=== PATIENT | male | born 1945 | race Caucasian/White ===

== ENCOUNTER → 2017-12-26 | Outpatient (CLI) | payer MEDICARE ==
--- NOTE | 2017-12-26 16:17 | XR ---
EXAMINATION TYPE: XR KUB DATE OF EXAM: 12/26/2017 COMPARISON: 08/02/2013 INDICATION: Renal stones TECHNIQUE: Single view abdomen frontal projection FINDINGS: There is a normal bowel gas pattern. Psoas margins are normal. No organomegaly is present. There is a large 1.7 x 3.1 cm calcification over the inferior pole right kidney with multiple additio nal smaller calcifications adjacent. These may be increasing in number and conspicuity. Multiple surgical clips likely from prostatectomy are within the pelvis. IMPRESSION: 1. Large right renal calcification with multiple increasing additional calcifications inferior pole r ight kidney region.
== END | disposition home or self-care (01) ==
LOC: RADXRMAIN 14:17
PROVIDERS: ATTEND Urology
DX: N20.0 Calculus of kidney (principal)
CPT/HCPCS: 74018

== ENCOUNTER → 2018-09-25 | Outpatient (CLI) | payer MEDICARE ==
--- NOTE | 2018-09-25 16:53 | XR ---
EXAMINATION TYPE: XR KUB DATE OF EXAM: 09/25/2018 COMPARISON: 12/26/2017r INDICATION: Renal stones TECHNIQUE: Single view abdomen supine view FINDINGS: There is a normal bowel gas pattern. Psoas margins are normal. No organomegaly is present. Large calcifications are at the inferior pole right kidney. The largest calcification measures 3.7 x 1.9 cm which is larger than the comparison. IMPRESSION: 1. Multiple calcifications mid to inferior pole right kidney, largest calcification has increased in size from the comparison.
== END | disposition home or self-care (01) ==
LOC: RADXRMAIN 10:58
PROVIDERS: ATTEND Urology
DX: N28.89 Other specified disorders of kidney and ureter (principal)
CPT/HCPCS: 74018

== ENCOUNTER → 2019-10-15 | Outpatient (CLI) | payer MEDICARE ==
--- NOTE | 2019-10-15 11:02 | XR ---
EXAMINATION TYPE: XR KUB DATE OF EXAM: 10/15/2019 HISTORY: Pain Comparison: September 25, 2018 Single KUB is submitted for interpretation. Findings: Right renal calculi: Large right renal calculus is redemonstrated and currently measures 2.3 x 1.5 cm versus 3.7 x 1.9 cm previously. Smaller cluster of calcifications again noted lower pole right kidne y with total measurement of 1.1 x 1.1 cm. Right ureteral calculi: None Visualized. Left renal calculi: None Visualized. Left ureteral calculi: None Visualized. Pelvic calcifications: None Visualized. Bowel gas pattern is unremarkable. No free air. No mass effects. IMPRESSION: 1. Large right renal calculus is redemonstrated and currently measures 2.3 x 1.5 cm versus 3.7 x 1.9 cm previously. Smaller cluster of calcifications again noted lower pole right kidney with total measu rement of 1.1 x 1.1 cm.
--- NOTE | 2019-10-15 12:23 | US ---
EXAMINATION TYPE: US kidneys/renal and bladder DATE OF EXAM: 10/15/2019 COMPARISON: NONE CLINICAL HISTORY: N20.0 Calculus of kidney. History of kidney stones EXAM MEASUREMENTS: Right Kidney: 11.6 x 6.1 x 6.2 cm Left Kidney: 13.5 x 7.0 x 5.6 cm Right Kidney: multiple stones lower pole, largest = 1.6cm. cystic area mid = 1.1 x 1.2 x 1.5cm Left Kidney: no evidence of hydronephrosis Bladder: not fully distended Bilateral Jets seen: no There is no evidence for hydronephrosis at this point in time. No nephrolithiasis is seen. No gail s are identified. The urinary bladder is anechoic. Bilateral ureteral jets are seen. IMPRESSION: Multiple right-sided nephrolithiasis without hydronephrosis.
== END | disposition home or self-care (01) ==
LOC: RADUSMAIN 09:39
PROVIDERS: ATTEND Urology
DX: N20.0 Calculus of kidney (principal)
CPT/HCPCS: 74018; 76770

== ENCOUNTER → 2021-12-01 | Outpatient (CLI) | payer MEDICARE ==
--- NOTE | 2021-12-01 14:45 | CT ---
EXAMINATION TYPE: CT abdomen pelvis wo con DATE OF EXAM: 12/01/2021 COMPARISON: X-ray 10/15/2019 HISTORY: poss kidney stone. hematuria CT DLP: 1008 mGycm Automated exposure control for dose reduction was used. TECHNIQUE: Helical acquisition of images was performed from the lung bases through the pelvis. FINDINGS: LUNG BASES: Heart is markedly enlarged and there is calcification of the aortic root. Lungs are clear there is interlobular septa suggest lung disease. Punctate calcifications right lung base may relate to small granuloma or related to the dome of the liver or pleural surface LIVER/GB: Multiple gallstones are seen. Liver homogeneous. PANCREAS: No significant abnormality is seen. SPLEEN: No significant abnormality is seen. ADRENALS: No significant abnormality is seen. KIDNEYS: Right kidney: There is no significant hydronephrosis. There is cortical loss and portable calcificati on along the upper margin of the right kidney suggestive of chronic medical renal disease. There is a 1.2 cm mid pole medial cyst lesion extending off the right kidney measuring 12 Hounsfield units sugg estive of simple cyst (Bosniak classification 1). Additionally there are numerous calcifications totaling over an involving the right kidney with the l argest calcification extending from the renal pelvis into the lower pole calyx measuring 2.2 cm. Left kidney: No hydronephrosis or nephrolithiasis URINARY BLADDER: No significant abnormality is seen. ADENOPATHY: None visualized. OSSEOUS STRUCTURES: Hypertrophic and degenerative change of the spine. Facet arthropathy noted. Susp ect multilevel canal stenosis with facet arthropathy and foraminal encroachment. Arthropathy of the h ips. BOWEL: Bowel gas pattern nonspecific without definite obstruction. Small hiatal hernia noted. OTHER: Atherosclerotic changes aorta with no fluid or free air. Fat-containing periumbilical hernia n oted. There is a rounded 1.1 cm soft tissue subcutaneous nodule posterior to the spinous process with in the subcutaneous fat at the level L5-S1 likely related to a sebaceous cyst. IMPRESSION: 1. There are numerous calcifications totaling approximately 10 within the right kidney with very mini mal to no hydronephrosis. Partial staghorn calculus seen extending from the renal pelvis to the lower pole the right kidney measuring 2.2 cm. 2. No evidence of left renal calculi or hydronephrosis
== END | disposition home or self-care (01) ==
LOC: RADCTMAIN 13:21
PROVIDERS: ATTEND Urology
DX: N20.0 Calculus of kidney (principal)
CPT/HCPCS: 74176

== ENCOUNTER → 2022-11-15 | Outpatient (CLI) | payer MEDICARE ==
--- NOTE | 2022-11-15 15:47 | XR ---
EXAMINATION TYPE: XR KUB DATE OF EXAM: 11/15/2022 HISTORY: Pain Comparison: None.Single KUB is submitted for interpretation. Findings: Right renal calculi: Staghorn calculus right kidney measuring 3.8 x 1.7 cm. Additional adjacent small er calcification seen. Right ureteral calculi: None Visualized. Left renal calculi: None Visualized. Left ureteral calculi: None Visualized. Pelvic calcifications: None Visualized. Bowel gas pattern is unremarkable. No free air. No mass effects. Prostatectomy clips are noted with in the urinary bladder. IMPRESSION: 1. Staghorn calculus right kidney measuring 3.8 x 1.7 cm. Additional adjacent smaller calcification s een.
== END | disposition home or self-care (01) ==
LOC: RADXRMAIN 14:55
PROVIDERS: ATTEND Urology
DX: N20.0 Calculus of kidney (principal); N28.89 Other specified disorders of kidney and ureter
CPT/HCPCS: 74018; 84153